=== PATIENT | male | born 1940 | race Caucasian/White ===

== ENCOUNTER 2016-10-25 14:08 | Emergency (ER) | payer MEDICARE, OTHER ==
--- NOTE | ~2016-10-25 | CN ---
Consultation Report [facility] [address] [place]. [address] NAME: CARMELLA ANDERSON : 44 STATUS : DIS IN PAT#: [id number] AGE: 76 ADM/REG DATE : 10/25/16 MR#: [id number] REPORT SERV DATE: 10/27/16 DICTATED BY: TONY SMITH DATE: 10/27/16 REPORT STATUS : Draft TRANSCRIBED BY: PRIMO DATE: 10/27/16 DATE OF CONSULTATION: HISTORY OF PRESENT ILLNESS: This patient is well known to me with a history of colon polyps. In fact due for a colonoscopy which was delayed because of some coronary artery difficulties. He relates about two months ago, he began having postprandial diarrhea. He was treated with an antibiotic for pulmonary issue. Last week prior to admission, he has had diarrhea all day. He also stated diarrhea might have started about the time of dialysis. Today, he had a normal stool. He has not taken any antidiarrheals. Stool for C. diff was negative. No recent change in medicines other than some anticoagulation. PAST MEDICAL HISTORY: End-stage kidney disease, diastolic heart failure, pericardial infusion, and type 2 diabetes. MEDICATIONS: Coreg, atorvastatin, omeprazole, lisinopril, Plavix, torsemide, Jantoven, Levemir, and NovoLog. PHYSICAL EXAMINATION: GENERAL: Moderately obese, blood pressure 125/58. CHEST: Clear. CARDIAC: Normal. ABDOMEN: Protuberant, but soft and nontender. LABORATORY DATA: Lab is really unremarkable. Hemoglobin was 13.1 down to 11.7. Stool studies were negative for C. diff. IMPRESSION: Recent onset of diarrhea, some of it postprandially, which actually has seemed to resolve now. Negative C. diff. Unclear etiology. Could be related to change in medicines. In fact, he was on Senokot for constipation last year. Also, could have diabetic diarrhea related to autonomic neuropathy. PLAN: 1. At this point with his diarrhea resolving, we will not plan on further studies. 2. At some point, we will need followup colonoscopy. /PRIMO Tony Smith M.D. / [id number] CC: Consultation Report [facility] [address] [place]. [address] NAME: CARMELLA ANDERSON : 44 STATUS : DIS IN PAT#: [id number] AGE: 76 ADM/REG DATE : 10/25/16 MR#: [id number] REPORT SERV DATE: 10/27/16 DICTATED BY: TONY SMITH DATE: 10/27/16 REPORT STATUS : Draft TRANSCRIBED BY: MODL DATE: 10/27/16 Diane Bailey D.O.
--- NOTE | ~2016-10-25 | CN ---
Consultation Report [facility] [address] [place]. [address] NAME: CARMELLA ANDERSON : 44 STATUS : ADM IN PAT#: [id number] AGE: 76 ADM/REG DATE : 10/25/16 MR#: [id number] REPORT SERV DATE: 10/26/16 DICTATED BY: SUSAN MARQUEZ DATE: 10/25/16 REPORT STATUS : Draft TRANSCRIBED BY: MODJanuary DATE: 10/25/16 CARDIOLOGY CONSULTATION DATE OF CONSULTATION: 10/25/2016 REFERRING PHYSICIAN: Nephrology Service. PRIMARY CONSTRUCTION SECRETARY: Dr. Wright. CHIEF COMPLAINT: Diarrhea. REASON FOR CONSULTATION: Chest pain. SOURCE: The patient's chart. HISTORY OF PRESENT ILLNESS: Mr. Anderson is a very pleasant, 76-year-old white man with coronary artery disease, status post coronary bypass grafting and multiple percutaneous interventions most recently, drug-eluting stenting x2 to the saphenous vein graft to obtuse margin branch in July. He has end-stage renal disease, on hemodialysis since July. Recently, he has had diarrhea. He came to the ER for diarrhea. A month ago, he had some nausea and vomiting with brown emesis and black stools after that but he has not had any GI blood loss. Recently, he has had some lower abdominal cramping but no fever or chills. He has also had some chest pain yesterday after dialysis. He felt weak and had an episode of chest pain across his chest without any radiation or associated symptoms. He took nitroglycerin, it lasted about 10 or 15 minutes. He also took nitroglycerin last night. He has taken a total of two this week. He did have some shortness of breath after dialysis yesterday as well. No swelling. He does have some palpitations and dizziness but no syncope. REVIEW OF SYSTEMS: All other systems are negative. ALLERGIES: NO KNOWN DRUG ALLERGIES. MEDICATIONS: At home included aspirin, Lipitor, carvedilol, clopidogrel, insulin, isosorbide, lisinopril, Singular, nitroglycerin, omeprazole, Demodex, and warfarin. CARDIAC RISK FACTORS: Diabetes, hypertension, cholesterol, former tobacco. Denies family history. PAST MEDICAL HISTORY: Significant for end-stage renal disease, on hemodialysis since July. Coronary artery disease, status post coronary bypass grafting in 1999 reportedly to 5 vessels. He has had a total of six stents since that time, the last two in July, drug-eluting stenting x2 to the saphenous vein graft to obtuse marginal branch. He had LVEF Consultation Report [address] [place]. [address] NAME: CARMELLA ANDERSON : 44 STATUS : ADM IN PAT#: [id number] AGE: 76 ADM/REG DATE : 10/25/16 MR#: [id number] REPORT SERV DATE: 10/26/16 DICTATED BY: SUSAN MARQUEZ DATE: 10/25/16 REPORT STATUS : Draft TRANSCRIBED BY: MODL DATE: 10/25/16 of 50% to 55% by echo at that time. He has had pericardial effusion, treated with dialysis in October of 2015. Left renal artery stenosis status post stenting, osteoarthritis, benign prostatic hypertrophy, gastroesophageal reflux. Anemia, remote stroke. Left upper extremity AV fistula 2014, status post appendectomy, tonsillectomy, and bilateral total knee arthroplasties. SOCIAL HISTORY: The patient lives in [place]. . One daughter is alive and well. He is retired. FAMILY HISTORY: Negative for coronary artery disease at young age. PHYSICAL EXAMINATION: GENERAL: He is well-developed, well-nourished, elderly white man, in no acute distress. VITAL SIGNS: Blood pressure is 122/52, pulse 58, temperature 97.7, weight is 89.9 kilos. HEENT: Sclerae anicteric. Lips without cyanosis. NECK: Carotids 2+ and symmetrical. Bilateral bruits. No JVD. No thyromegaly. LUNGS: Clear to auscultation. No use of accessory muscles. HEART: Regular rate and rhythm with 2/6 systolic murmur. No heaves or thrills. CHEST: Healed sternotomy. ABDOMEN: Upright. Positive bowel sounds. Soft, nontender. EXTREMITIES: Pulses 2+ and symmetrical. No cyanosis, clubbing, or edema. BACK: No CVA tenderness. MUSCULOSKELETAL: Good tone. NEURO: Alert and oriented x3. DATA: EKG reveals normal sinus rhythm, inferior myocardial infarction of undetermined age, anterolateral ST-T wave changes. LABORATORY EXAMINATION: The white count of 4.1, hemoglobin 13.1, hematocrit 39.5, platelets 150,000. INR of 1.3, PTT of 27.1, sodium 140, potassium 4.0, chloride of 100, CO2 of 28, glucose 228, BUN 32, creatinine 4.46, troponin of 0.51. A second set; CPK 87, MB 1.9, troponin of 0.38. Chest x-ray, CABG; no acute cardiopulmonary abnormality. IMPRESSION: 1. Chest pain consistent with functional class 2 angina. 2. Extensive coronary disease status post coronary bypass grafting in 1999, multiple PCIs last 08/07/2016 with CHRIS x2 to the saphenous vein graft to obtuse marginal branch. He also had stenosis and a very small LAD beyond the UPTON graft which was not attractive for percutaneous intervention. 3. Left ventricular ejection fraction of 50%-55% by echo in July. 4. End-stage renal disease, on hemodialysis since July. 5. Diarrhea. 6. Cardiac risk factors including diabetes, hypertension, cholesterol, and former tobacco. Consultation Report [address] [place]. [address] NAME: CARMELLA ANDERSON : 44 STATUS : ADM IN [facility]#: [id number] AGE: 76 ADM/REG DATE : 10/25/16 MR#: [id number] REPORT SERV DATE: 10/26/16 DICTATED BY: SUSAN MARQUEZ DATE: 10/25/16 REPORT STATUS : Draft TRANSCRIBED BY: PRIMO DATE: 10/25/16 RECOMMENDATIONS: 1. I agree with serial EKGs and enzymes. 2. Continue aspirin, Plavix, Lipitor, Coreg, lisinopril, and Imdur. 3. Nitroglycerin p.r.n. 4. Echocardiogram in a.m. 5. Thallium stress test in a.m. The risks, benefits, and complications were discussed with the patient. He understands them and those of his alternatives, and wishes to proceed. Questions answered. GURU/PRIMO Susan Marquez M.D. / [id number] CC: Diane Bailey D.O.
--- NOTE | ~2016-10-25 | HP ---
History And Physical [facility] [address] [facility] [place]. [address] NAME: CARMELLA ANDERSON : 44 STATUS : ADM IN [facility]#: [id number] AGE: 76 ADM/REG DATE : 10/25/16 MR#: [id number] REPORT SERV DATE: 10/25/16 DICTATED BY: DATE: REPORT STATUS : Draft TRANSCRIBED BY: MODL DATE: 10/25/16 DATE OF ADMISSION: 10/25/2016 CHIEF COMPLAINT: Diarrhea. HISTORY OF PRESENT ILLNESS: Mr. Anderson is a 76-year-old white male who presented to the emergency department for diarrhea. He states he had this for approximately a month. He had also been put on antibiotics a month ago. His diarrhea has been consistent. He states he is going at least three to four times a day and he is having weakness that seems to be worsening as well. Yesterday after dialysis, he had chest pain that was across his mid chest. He does not think it had any radiation to his neck. No nausea. He has had some stomach cramping, but does state he is having shortness of breath, but he is not quite clear whether it is related to the chest pain or not. He does have a history of drug-eluting stent in July. He has a history of bypass in the past. He has also had stenting prior to the previous. He had his troponin elevated at 0.5. No EKG changes, but given his elevated troponin and chest pain yesterday, he is going to be admitted for further evaluation. PAST MEDICAL HISTORY: End-stage renal disease, dialyzes on Friday, , Friday in [place]. He has a history of diastolic heart failure; pericardial effusion; renal artery stenosis; stenting; BPH; reflux; type 2 diabetes; COPD; hypertension; anemia; coronary artery disease, status post bypass in 1997 with subsequent PCI in 2013 and then stenting in July; CVA; and hyperlipidemia. SOCIAL HISTORY: He is . Retired truck mechanic. History of tobacco use, but none in quite some time. No alcohol or illicit drug use. He has a left AV fistula. He has had appendectomy, tonsillectomy, and bilateral knee replacements. ALLERGIES: NONE. FAMILY MEDICAL HISTORY: No end-stage renal disease. MEDICATIONS: Coreg, atorvastatin, omeprazole, lisinopril, Plavix, montelukast, torsemide, Jantoven, isosorbide, aspirin, Levemir, and NovoLog. REVIEW OF SYSTEMS: A 12-point review of systems was obtained and negative with the exception of that in the HPI. PHYSICAL EXAMINATION: VITAL SIGNS: Temp 97.7, blood pressure 125/58, pulse 61, respiratory rate 16, and O2 saturation is 96%. GENERAL: This is a pleasant and cooperative white male. He is awake, alert, and oriented x3, in no acute distress, answers questions appropriately. HEENT: Normocephalic and atraumatic. Conjunctivae are clear. Sclerae are anicteric. Pupils are equal and round. Oral mucosa is moist. History And Physical [address] [address] NAME: CARMELLA ANDERSON : 44 STATUS : ADM IN [facility]#: [id number] AGE: 76 ADM/REG DATE : 10/25/16 MR#: [id number] REPORT SERV DATE: 10/25/16 DICTATED BY: DATE: REPORT STATUS : Draft TRANSCRIBED BY: MODL DATE: 10/25/16 NECK: Supple. Carotids are brisk. Neck veins are flat. No lymphadenopathy. LUNGS: Respirations are even and unlabored. Breath sounds are clear to auscultation. HEART: Rate is regular. No murmur, rub, or gallop. ABDOMEN: Soft and nontender. Bowel sounds are active. No masses. No hepatosplenomegaly. No bruits. No CVA tenderness. BACK: Within normal limits. EXTREMITIES: No edema, cyanosis, or clubbing. SKIN: Warm, dry, and intact. No unusual rashes or skin lesions. NEURO: No focal deficits. Mood and affect, pleasant and appropriate. PERTINENT LABS AND X-RAYS: Sodium 140, potassium 4, chloride 100, CO2 28, BUN of 32, creatinine of 4.4, glucose 228, calcium 8.4, and magnesium 1.7. Troponin 0.5. Chest x-ray was negative. WBC is 4.1, H and H 13 and 39, and platelets 158,000. IMPRESSION: 1. Chest pain and elevated troponin. 2. Coronary artery disease, status post drug-eluting stent in July of 2016. 3. Diarrhea. 4. Left renal artery stenosis, status post stent. 5. Diabetes. PLAN: He is going to be admitted to medical floor to monitored bed. Serial cardiac enzymes. Continue usual medicines, which includes Plavix. Cardiology consult. Stool for C diff. We will hold off on any GI consult at this time. His GI doctor is Dr. Carrillo, but given that he just had drug-eluting stent in July, we will hold consult as he would not be a good candidate for any endoscopy unless it was emergent at this point. Further orders and recommendations pending clinical course. DANIAL/PRIMO ALEIDA Molina / [id number] CC: Diane Bailey D.O.
[2016-10-25 12:24] LABS: BASOPHILS 0.2 %; BASOPHILS ABSOLUTE 0.01 10/3/uL (0.0-0.16); EOSINOPHILS 5.8 %; EOSINOPHILS ABSOLUTE 0.24 10/3/uL (0.0-0.53); LYMPHOCYTES 21.6 %; LYMPHOCYTES ABSOLUTE 0.89 10/3/uL (0.67-4.30); MEAN CORPUS HGB CONC 33.2 g/dL (32.0-36.0); MEAN CORPUSCULAR HEMOGLOB 30.1 pg (26.0-34.0); MEAN PLATELET VOLUME 10.3 fL (9.2-13.0); MONOCYTES 9.7 %; NEUTROPHILS 62.7 %; NEUTROPHILS ABSOLUTE 2.58 10/3/uL (2.02-8.40); PLATELET COUNT 158 10/3/uL (150-400); WHITE BLOOD CELLS 4.1 10/3/uL (4.5-10.5)
[2016-10-25 12:25] LABS: HEMATOCRIT 39.5 % (40.0-51.0); HEMOGLOBIN 13.1 g/dL (13.6-17.8); MANUAL DIFF NO %; MEAN CORPUSCULAR VOLUME 90.8 fL (80-100); RED CELL COUNT 4.35 10/6/uL (4.7-6.1)
[2016-10-25 12:30] LABS: INTERNATIONAL NORMAL RATI 1.3 UNITS (-); PARTIAL THROMBO TIME 27.1 SEC (22.5-37.2)
[2016-10-25 12:40] LABS: BUN (BLOOD UREA NITROGEN) 32 MG/DL (6-23); CALCIUM, SERUM 8.4 MG/DL (8.5-10.4); CHEST PAIN PROFILE TAT 0 Hrs 22 Mins; CHLORIDE, SERUM 100 MMOL/L (96-112); CO2 (CARBON DIOXIDE) 28 MMOL/L (24-34); CREATININE 4.46 MG/DL (0.70-1.30); GFR AFRICAN AMERICAN 14 ML/MIN (>=60); GFR NON AFRICAN AMERICAN 12 ML/MIN (>=60); GLUCOSE, SERUM 228 MG/DL (60-99); SODIUM, SERUM 140 MMOL/L (135-148); TROPONIN I 0.51 NG/ML (<0.05)
[~2016-10-25 14:08] MED LIST: AFRIN15 NAS; ALLEGRA180 PO; AMARYL2 PO; APRES25 PO; APRES50 PO; ASAB PO; ASTELIN NAS; ATEN50 PO; AUG875 PO; AVAP150 PO; BABY ASA PO; BRILINTA90 MG PO; CARDCD240 PO; CARDU4 PO; CARDURA8 MG PO; CELEBREX2 PO; CENTRUM SILVER PO; CENTRUM TAB1 TAB PO; COREG25 PO; COUMADIN4 MG PO; DEMA20 PO; FIBERCON PO; FLOMAX4 PO; FLONASE NAS; FOLIC PO; GLUCPH PO; GLUMETZA1000 MG PO; HALF81 PO; IMDUR30; IMDUR30 PO; JANUVIA100 MG PO; KLONO5 PO; L40 PO; LEVEMFLXPN SC; LEVEMIR SC; LIPITOR40 PO; LIPITOR80 MG PO; LIQUID TEARS OPH; LOP50 PO; M-CLEAR WC PO; MIRALAXPKT PO; NEPHRO PO; NEUR100 PO; NEUR300; NEXIUM40 PO; NITROPASTE TOP; NITROSTAT0.4 MG SL; NORV10 PO; NORV5 PO; NOVOLOG SC; NOVOPEN SC; OCEAN NAS; OTC NASAL SPRAY NAS; OTC VITAMIN D3 PO; PLAVIX PO; PRILO PO; PROAIR HFA INH; PROTONIX PO; RANITIDINE300 MG PO; REFRESH OPH; SENTAB PO; VITAMIN D2000 UNIT PO; VITC500 PO; ZANTAC300 MG PO
[2016-10-25] MEDS ORDERED: PRILO PO (14:15)
[2016-10-25] MEDS ORDERED: PRIN20 PO (14:15)
[2016-10-25] MEDS ORDERED: COREG25 PO (14:15)
[2016-10-25] MEDS ORDERED: LIPITOR80 MG PO (14:15)
[2016-10-25] MEDS ORDERED: DEMA100 PO (14:16)
[2016-10-25] MEDS ORDERED: PLAVIX PO (14:16)
[2016-10-25] MEDS ORDERED: SINGULAIR1 PO (14:16)
[2016-10-25] MEDS ORDERED: JANTOVEN4 MG PO (14:17)
[2016-10-25] MEDS ORDERED: IMDUR30 PO (14:17)
[2016-10-25] MEDS ORDERED: ASAB PO (14:17)
[2016-10-25] MEDS ORDERED: LEVEMFLXPN SC (14:18)
[2016-10-25] MEDS ORDERED: NOVOLOG SC ×2 (14:18→14:19)
[2016-10-25] MEDS ORDERED: NITROSTAT0.4 MG SL (14:19)
[2016-10-25 18:30] LABS: CPK 87 U/L (0-200)
[2016-10-25 18:31] LABS: CK-MB 1.9 NG/ML; TROPONIN I 0.38 NG/ML (<0.05)
[2016-10-26 02:33] LABS: CPK 88 U/L (0-200)
[2016-10-26 02:34] LABS: CK-MB 2.3 NG/ML
[2016-10-26 02:35] LABS: TROPONIN I 0.29 NG/ML (<0.05)
[2016-10-26 04:55] LABS: INTERNATIONAL NORMAL RATI 1.6 UNITS (-)
[2016-10-26 04:57] LABS: PROTIME (NOT ORD) 18.5 SEC (12.0-14.5)
[2016-10-26 05:00] LABS: PARTIAL THROMBO TIME 137.1 SEC (22.5-37.2)
[2016-10-26 12:51] LABS: BASOPHILS 0.5 %; BASOPHILS ABSOLUTE 0.02 10/3/uL (0.0-0.16); EOSINOPHILS 6.8 %; EOSINOPHILS ABSOLUTE 0.28 10/3/uL (0.0-0.53); HEMOGLOBIN 11.7 g/dL (13.6-17.8); IMMATURE GRANULOCYTES 0.2 %; IMMATURE GRANULOCYTES ABSOLUTE 0.01 10/3/uL (0.0-0.11); LYMPHOCYTES 25.6 %; LYMPHOCYTES ABSOLUTE 1.05 10/3/uL (0.67-4.30); MEAN CORPUS HGB CONC 34.3 g/dL (32.0-36.0); MEAN CORPUSCULAR HEMOGLOB 30.5 pg (26.0-34.0); MEAN CORPUSCULAR VOLUME 88.8 fL (80-100); MEAN PLATELET VOLUME 10.2 fL (9.2-13.0); MONOCYTES 12.4 %; MONOCYTES ABSOLUTE 0.51 10/3/uL (0.21-1.20); NEUTROPHILS 54.5 %; NEUTROPHILS ABSOLUTE 2.23 10/3/uL (2.02-8.40); PLATELET COUNT 146 10/3/uL (150-400); RED CELL COUNT 3.84 10/6/uL (4.7-6.1); WHITE BLOOD CELLS 4.1 10/3/uL (4.5-10.5)
[2016-10-26 12:52] LABS: HEMATOCRIT 34.1 % (40.0-51.0); MANUAL DIFF NO %
[2016-10-26 13:07] LABS: ALBUMIN 3.2 G/DL (3.5-5.0); BUN (BLOOD UREA NITROGEN) 48 MG/DL (6-23); CALCIUM, SERUM 7.8 MG/DL (8.5-10.4); CHLORIDE, SERUM 101 MMOL/L (96-112); CO2 (CARBON DIOXIDE) 25 MMOL/L (24-34); GFR AFRICAN AMERICAN 11 ML/MIN (>=60); GFR NON AFRICAN AMERICAN 10 ML/MIN (>=60); GLUCOSE, SERUM 161 MG/DL (60-99); PHOSPHORUS, SERUM 4.9 MG/DL (2.5-4.5); POTASSIUM, SERUM 4.1 MMOL/L (3.5-5.3); SODIUM, SERUM 138 MMOL/L (135-148)
[2016-10-27 06:34] LABS: INTERNATIONAL NORMAL RATI 1.7 UNITS (-); PROTIME (NOT ORD) 19.9 SEC (12.0-14.5)
[2016-10-27 06:35] LABS: PARTIAL THROMBO TIME 94.4 SEC (22.5-37.2)
[2016-10-27] MEDS ORDERED: NORV5 PO (14:14)
[2016-10-27] MEDS ORDERED: FLORASTOR250 MG PO (14:15)
[2017-02-12] MEDS ORDERED: PROTONIX20 MG PO (20:24)
[2017-02-12] MEDS ORDERED: LIPITOR80 MG PO (20:25)
[2017-02-12] MEDS ORDERED: CARDURA8 MG PO (20:26)
[2017-02-12] MEDS ORDERED: IMDUR30 PO (20:26)
[2017-02-12] MEDS ORDERED: LEVEMFLXPN SC (20:27)
[2017-02-12] MEDS ORDERED: NITROQUICK0.4 MG SL (20:28)
[2017-02-12] MEDS ORDERED: HALF81 PO (20:29)
[2017-02-12] MEDS ORDERED: NOVOPEN SC ×2 (20:29→20:44)
[2017-02-12] MEDS ORDERED: NORV5 PO (20:30)
[2017-02-12] MEDS ORDERED: JANTOVEN1 MG PO (20:31)
[2017-02-12] MEDS ORDERED: PRILO PO (20:32)
[2017-02-12] MEDS ORDERED: DEMA100 PO (20:32)
[2017-02-12] MEDS ORDERED: JANTOVEN4 MG PO (20:32)
[2017-02-12] MEDS ORDERED: SINGULAIR1 PO (20:33)
[2017-02-12] MEDS ORDERED: PRIN20 PO (20:33)
[2017-02-19] MEDS ORDERED: PLAVIX PO (12:53)
== END 2016-10-27 15:32 | disposition home or self-care (01) ==
LOC: ER 14:08
PROVIDERS: Hospitalist; Internal Medicine Nephrology; Nurse Practitioner
DX: R07.9 Chest pain, unspecified (principal); R53.1 Weakness; I13.2 Hypertensive heart and chronic kidney disease with heart failure and with stage 5 chronic kidney disease, or end stage renal disease; N18.6 End stage renal disease; I50.9 Heart failure, unspecified; D64.9 Anemia, unspecified; E11.22 Type 2 diabetes mellitus with diabetic chronic kidney disease; K21.9 Gastro-esophageal reflux disease without esophagitis; Z86.73 Personal history of transient ischemic attack (TIA), and cerebral infarction without residual deficits; J44.9 Chronic obstructive pulmonary disease, unspecified; Z87.891 Personal history of nicotine dependence; Z95.1 Presence of aortocoronary bypass graft; Z95.5 Presence of coronary angioplasty implant and graft; Z79.899 Other long term (current) drug therapy; Z79.01 Long term (current) use of anticoagulants; Z79.4 Long term (current) use of insulin; Z79.82 Long term (current) use of aspirin
CPT/HCPCS: 71020; 78452; 80048; 80069; 82550; 82553; 82947; 82962; 83735; 84484; 85025; 85610; 85730; 87493; 87493-59; 93005; 93017; 93308; 96374; 96375; 99285; A9270-GY; A9502; J0153; J2405

== ENCOUNTER 2016-12-05 23:00 | Emergency (ER) | payer MEDICARE, OTHER ==
[~2016-12-05 23:00] MED LIST changes: +DEMA100 PO; +FLORASTOR250 MG PO; +JANTOVEN4 MG PO; +PRIN20 PO; +SINGULAIR1 PO
[2016-12-06 01:19] LABS: INTERNATIONAL NORMAL RATI 1.8 UNITS (-); PROTIME (NOT ORD) 20.5 SEC (12.0-14.5)
[2016-12-06 01:25] LABS: CALCIUM, SERUM 8.6 MG/DL (8.5-10.4); CHLORIDE, SERUM 100 MMOL/L (96-112); POTASSIUM, SERUM 4.3 MMOL/L (3.5-5.3); SODIUM, SERUM 141 MMOL/L (135-148)
[2016-12-06 01:26] LABS: BUN (BLOOD UREA NITROGEN) 30 MG/DL (6-23); CO2 (CARBON DIOXIDE) 36 MMOL/L (24-34); CREATININE 3.97 MG/DL (0.70-1.30); GFR AFRICAN AMERICAN 16 ML/MIN (>=60); GFR NON AFRICAN AMERICAN 14 ML/MIN (>=60); GLUCOSE, SERUM 187 MG/DL (60-99)
[2017-02-12] MEDS ORDERED: PROTONIX20 MG PO (20:24)
[2017-02-12] MEDS ORDERED: LIPITOR80 MG PO (20:25)
[2017-02-12] MEDS ORDERED: CARDURA8 MG PO (20:26)
[2017-02-12] MEDS ORDERED: IMDUR30 PO (20:26)
[2017-02-12] MEDS ORDERED: LEVEMFLXPN SC (20:27)
[2017-02-12] MEDS ORDERED: NITROQUICK0.4 MG SL (20:28)
[2017-02-12] MEDS ORDERED: NOVOPEN SC ×2 (20:29→20:44)
[2017-02-12] MEDS ORDERED: HALF81 PO (20:29)
[2017-02-12] MEDS ORDERED: NORV5 PO (20:30)
[2017-02-12] MEDS ORDERED: JANTOVEN1 MG PO (20:31)
[2017-02-12] MEDS ORDERED: PRILO PO (20:32)
[2017-02-12] MEDS ORDERED: JANTOVEN4 MG PO (20:32)
[2017-02-12] MEDS ORDERED: DEMA100 PO (20:32)
[2017-02-12] MEDS ORDERED: PRIN20 PO (20:33)
[2017-02-12] MEDS ORDERED: SINGULAIR1 PO (20:33)
[2017-02-19] MEDS ORDERED: PLAVIX PO (12:53)
== END 2016-12-06 02:04 | disposition home or self-care (01) ==
LOC: ER 23:00
PROVIDERS: Emergency Medicine
DX: S00.12XA Contusion of left eyelid and periocular area, initial encounter (principal); I13.0 Hypertensive heart and chronic kidney disease with heart failure and stage 1 through stage 4 chronic kidney disease, or unspecified chronic kidney disease; N18.9 Chronic kidney disease, unspecified; I50.9 Heart failure, unspecified; E11.22 Type 2 diabetes mellitus with diabetic chronic kidney disease; J44.9 Chronic obstructive pulmonary disease, unspecified; D64.9 Anemia, unspecified; Z86.73 Personal history of transient ischemic attack (TIA), and cerebral infarction without residual deficits; Z95.1 Presence of aortocoronary bypass graft; Z87.891 Personal history of nicotine dependence; Z79.01 Long term (current) use of anticoagulants; Z79.82 Long term (current) use of aspirin; Z79.4 Long term (current) use of insulin; Z79.899 Other long term (current) drug therapy; W51.XXXA Accidental striking against or bumped into by another person, initial encounter
CPT/HCPCS: 70450; 80048; 85610; 99284